=== PATIENT | male | born 1990 | race Caucasian/White ===

== ENCOUNTER 2017-11-09 11:14 | Emergency (ER) | payer BC ==
[~2017-11-09] VITALS: Ht 170.2 cm; Wt 66.5 kg
[~2017-11-09 11:14] MED LIST: FLUV25TA2 PO; LORA-741 PO
[2017-11-09 11:38] VITALS: TEMP 37; Ht 170.2 cm; Wt 66.5 kg
[2017-11-09] MEDS ORDERED: FAMOTIDINE 20MG/5ML IV PUSH IV STA (13:07)
--- NOTE | 2017-11-09 13:15 | EMERGENCY ROOM VISIT NOTE ---
History Report prepared by Coryibnaye: Charissa Salcedo Under the Supervision of: Dr. Usha Thornton M.D. First contact with patient: 13:04 Chief Complaint: SHORTNESS OF BREATH Stated Complaint: FLU LIKE, SOB, UPPER STOMACH PAIN Nursing Triage Summary: flulike symoptoms since last thursday. fevers, chills and hot flashes, bodyaches, vomiting x1, diarrhea for several days. pt reports pain when lying down which at times has SOB History of Present Illness The patient is a 26 year old male who presents to the Emergency Room with complaints of intermittent severe upper abdominal pain beginning about 5 days ago. The patient states his pain worsens when he lays flat. The patient states he was having flu like symptoms over the past couple days. He states he went to his PCP on Thursday, three days ago, to be tested for the flu which he was negative for. He reports a 100.6 degree fever and some shortness of breath. He describes his pain as "squeezing my insides". The patient reports taking Tums and a gas relief medication with minimal relief. He denies any alcohol or tobacco use. He states he occasionally drinks coffee but denies drinking any soda. The patient takes gabapentin and an antiinflammatory for a budging disc in his back. Source of History: patient Onset: 5 days ago Position: abdomen Symptom Intensity: severe Timing: intermittent Modifying Factors (Worsening): other (lays flat) Associated Symptoms: + fevers, + SOB, + abdominal pain Review of Systems See HPI for pertinent positives & negatives. A total of 10 systems reviewed and were otherwise negative. Past Medical & Surgical Medical Problems: (1) Asthma Surgical Problems: (1) H/O tympanostomy Family History FH: Crohn's disease FH: kidney disease Social History Smoking Status: Never Smoker Alcohol Use: occasionally Marital Status: Housing Status: lives with significant other Occupation Status: employed Current/Historical Medications Scheduled Fluvoxamine Maleate (Luvox), 50 MG PO DAILY Gabapentin (Gabapentin), 300 MG PO BID Meloxicam (Meloxicam), 15 MG PO DAILY Omeprazole (Prilosec), 20 MG PO DAILY Allergies Coded Allergies: Morphine (Unverified Adverse Reaction, Severe, NAUSEA, 11/09/17) Physical Exam Vital Signs Date Time Temp Pulse Resp B/P (MAP) Pulse Ox O2 Delivery O2 Flow Rate FiO2 11/09/17 16:07 87 16 116/66 99 Room Air 11/09/17 14:39 87 16 111/74 100 Room Air 11/09/17 13:25 56 11/09/17 13:21 99 Room Air 11/09/17 13:21 80 16 121/72 99 Room Air 11/09/17 11:40 100 Room Air 11/09/17 11:38 37.0 95 18 122/55 99 Room Air Physical Exam Vital signs reviewed. General: Well-appearing male, in no significant distress. HEENT: No scleral icterus, PERRLA, neck supple. Atraumatic. Cardiovascular: Regular rate and rhythm, no extra sounds. Pulmonary: Clear to auscultation bilaterally, normal work of breathing. Abdomen: Soft, nontender, nondistended, positive bowel sounds. Musculoskeletal: Atraumatic, no peripheral edema. Neurologic: Patient awake alert and oriented x 3 Skin: Warm, dry, no rash Medical Decision & Procedures ER Provider Diagnostic Interpretation: Radiology results as stated below per my review and radiologist interpretation: TWO VIEW CHEST FINDINGS: PA and lateral chest radiographs are obtained. No prior studies are available for comparison at the time of dictation. The cardiomediastinal silhouette is unremarkable. The lungs and pleural spaces are clear. There is no pneumothorax. The bony thorax appears intact. IMPRESSION: No active disease in the chest. Electronically signed by: Blake Kruger M.D. Laboratory Results 11/09/17 13:20 Red Blood Count 4.83, Mean Corpuscular Volume 94.0, Mean Corpuscular Hemoglobin 33.1, Mean Corpuscular Hemoglobin Concent 35.2, Mean Platelet Volume 11.1, Neutrophils (%) (Auto) 60.7, Lymphocytes (%) (Auto) 28.5, Monocytes (%) (Auto) 8.6, Eosinophils (%) (Auto) 1.6, Basophils (%) (Auto) 0.4, Neutrophils # (Auto) 2.98, Lymphocytes # (Auto) 1.40, Monocytes # (Auto) 0.42, Eosinophils # (Auto) 0.08, Basophils # (Auto) 0.02 11/09/17 13:20 Test 11/09/17 13:20 11/09/17 13:25 White Blood Count 4.91 K/uL (4.8-10.8) Red Blood Count 4.83 M/uL (4.7-6.1) Hemoglobin 16.0 g/dL (14.0-18.0) Hematocrit 45.4 % (42-52) Mean Corpuscular Volume 94.0 fL (80-100) Mean Corpuscular Hemoglobin 33.1 pg (25-34) Mean Corpuscular Hemoglobin Concent 35.2 g/dl (32-36) Platelet Count 171 K/uL (130-400) Mean Platelet Volume 11.1 fL (7.4-10.4) Neutrophils (%) (Auto) 60.7 % Lymphocytes (%) (Auto) 28.5 % Monocytes (%) (Auto) 8.6 % Eosinophils (%) (Auto) 1.6 % Basophils (%) (Auto) 0.4 % Neutrophils # (Auto) 2.98 K/uL (1.4-6.5) Lymphocytes # (Auto) 1.40 K/uL (1.2-3.4) Monocytes # (Auto) 0.42 K/uL (0.11-0.59) Eosinophils # (Auto) 0.08 K/uL (0-0.5) Basophils # (Auto) 0.02 K/uL (0-0.2) RDW Standard Deviation 43.1 fL (36.4-46.3) RDW Coefficient of Variation 12.6 % (11.5-14.5) Immature Granulocyte % (Auto) 0.2 % Immature Granulocyte # (Auto) 0.01 K/uL (0.00-0.02) Anion Gap 5.0 mmol/L (3-11) Est Creatinine Clear Calc Drug Dose 91.0 ml/min Estimated GFR () 100.9 Estimated GFR (Non- 87.0 BUN/Creatinine Ratio 11.6 (10-20) Calcium Level 9.0 mg/dl (8.5-10.1) Total Bilirubin 1.4 mg/dl (0.2-1) Direct Bilirubin 0.3 mg/dl (0-0.2) Aspartate Amino Transf (AST/SGOT) 13 U/L (15-37) Alanine Aminotransferase (ALT/SGPT) 19 U/L (12-78) Alkaline Phosphatase 50 U/L (45-117) Troponin I < 0.015 ng/ml (0-0.045) Total Protein 7.0 gm/dl (6.4-8.2) Albumin 4.3 gm/dl (3.4-5.0) Lipase 147 U/L (73-393) Bedside D-Dimer > 450 ng/mlFEU (0-450) Bedside Troponin I ng/ml (0-0.045) Laboratory results per my review. Medications Administered Medications (Trade) Dose Ordered Sig/Kristine Route Start Time Stop Time Status Last Admin Dose Admin Famotidine (Pepcid 20mg Iv Push) 20 mg ONE STAT IV 11/09/17 13:07 11/09/17 13:11 DC 11/09/17 14:40 20 MG Acetaminophen (Tylenol Tab) 650 mg NOW STAT PO 11/09/17 15:28 11/09/17 15:29 DC 11/09/17 16:04 650 MG ED Course 1306: Past medical records reviewed. The patient was evaluated in room C6. A complete history and physical examination was performed. 1307: Ordered Famotidine 20 mg IV. 1513: I updated the patient on his test results. Medical Decision Differential diagnosis: Etiologies such as appendicitis, diverticulitis, PUD, biliary pathology, UTI, pancreatitis, obstruction, mesenteric ischemia, aortic pathology, infections, inflammatory bowel disease, renal colic, as well as others were entertained. This patient was evaluated and appeared to be in no significant distress. IV access was obtained and laboratory work was drawn. Chest x-ray was obtained and is negative. Laboratory work reveals a normal white blood cell count, normal troponin and elevated d-dimer. CT scan of the chest was performed and is negative for PE. I do suspect that the patient may be suffering more from a gastritis/PUD or esophageal reflux. Patient was given Pepcid 20 mg IV. Patient was given oral Tylenol for his discomfort. He was given a prescription for Prilosec 20 mg daily and advised to follow-up with his PCP. Patient was given restrictions on NSAIDs and dietary. He will return to the ER for worsening of symptoms or any medical concerns. Medication Reconcilliation Current Medication List: was personally reviewed by me Blood Pressure Screening Patient's blood pressure: Normal blood pressure Impression Primary Impression: Epigastric pain Scribe Attestation The scribe's documentation has been prepared under my direction and personally reviewed by me in its entirety. I confirm that the note above accurately reflects all work, treatment, procedures, and medical decision making performed by me. Departure Information Dispostion Home / Self-Care Prescriptions Omeprazole (PRILOSEC) 20 Mg Capcr 20 MG PO DAILY for 30 Days, #30 CAP Prov: Usha Thornton M.D. 11/09/17 Referrals Star Jones M.D. (PCP) Forms HOME CARE DOCUMENTATION FORM, IMPORTANT VISIT INFORMATION Patient Instructions My [facility] Additional Instructions Diagnosis: Epigastric pain Prilosec 20 mg daily Avoid NSAIDs such as ibuprofen, Naprosyn. Avoid aspirin. Drink plenty of clear fluids. Avoid any greasy or spicy foods. Follow-up with your physician this week for reevaluation. Return to the ER for worsening of symptoms or any medical concerns.
[2017-11-09 13:21] VITALS: O2SAT 99
[2017-11-09] MEDS ORDERED: MELO15TA4 PO (13:35)
[2017-11-09] MEDS ORDERED: NRN300 PO (13:35)
[2017-11-09 14:05] LABS: BASO % 0.4 %; BASO ABS # 0.02 K/uL (0-0.2); EOS % 1.6 %; EOS ABS # 0.08 K/uL (0-0.5); HEMATOCRIT 45.4 % (42-52); IG# 0.01 K/uL (0.00-0.02); LYMPH % 28.5 %; MEAN CORPUSCULAR HEMOGLOBIN 33.1 pg (25-34); MEAN CORPUSCULAR HGB CONC 35.2 g/dl (32-36); MEAN PLATELET VOLUME 11.1 fL (7.4-10.4); MONO % 8.6 %; MONO ABS # 0.42 K/uL (0.11-0.59); NEUT % 60.7 %; NEUT ABS # 2.98 K/uL (1.4-6.5); PLATELET COUNT 171 K/uL (130-400); RED CELL DISTRIBUTION WIDTH CV 12.6 % (11.5-14.5); RED CELL DISTRIBUTION WIDTH SD 43.1 fL (36.4-46.3); WHITE BLOOD COUNT 4.91 K/uL (4.8-10.8)
[2017-11-09 14:33] LABS: ALBUMIN 4.3 gm/dl (3.4-5.0); CREATININE 1.16 mg/dl (0.60-1.40); POTASSIUM 4.3 mmol/L (3.5-5.1)
--- NOTE | 2017-11-09 15:03 | DIAGNOSTIC IMAGING REPORT ---
TWO VIEW CHEST CLINICAL HISTORY: Dyspnea and fever. Epigastric abdominal pain. FINDINGS: PA and lateral chest radiographs are obtained. No prior studies are available for comparison at the time of dictation. The cardiomediastinal silhouette is unremarkable. The lungs and pleural spaces are clear. There is no pneumothorax. The bony thorax appears intact. IMPRESSION: No active disease in the chest. Electronically signed by: Blake Kruger M.D. 11/09/2017 3:02 PM Dictated Date/Time: 11/09/2017 3:01 PM
[2017-11-09] MEDS ORDERED: PRLSR20 PO (15:22)
[2017-11-09] MEDS ORDERED: ACETAMINOPHEN 325 MG TAB PO STA (15:28)
[2017-11-09] MEDS ORDERED: OPTIRAY 320 IV PRN (15:30)
--- NOTE | 2017-11-09 15:58 | DIAGNOSTIC IMAGING REPORT ---
(CHEST FOR PE) ANGIO WITH CLINICAL HISTORY: 26 years-old Male presenting with ^elevated ddimer, SOB. TECHNIQUE: Multidetector CT angiography of the chest was performed after administration of intravenous contrast. 3-D volumetric and/or maximum intensity projection (MIP) images were subsequently reconstructed for review. IV contrast: 91 mL of Optiray 320. A dose lowering technique was used consistent with the principles of ALARA (as low as reasonably achievable). COMPARISON: None. CT DOSE (mGy.cm): The estimated cumulative dose is 256.01 mGy.cm. FINDINGS: Armature W[employer] Helper topogram: Unremarkable. Pulmonary vasculature: The study is adequate for assessment of the pulmonary vascular tree. No filling defect within the pulmonary arteries to suggest embolus. Main pulmonary artery is not enlarged. No flattening of the interventricular septum. No intracardiac filling defect. Reflux of contrast into the intrahepatic IVC. Remaining chest: On soft tissue windows, normal thyroid and thoracic inlet. No axillary, supraclavicular, hilar, or mediastinal lymphadenopathy. Normal aorta. Normal heart size. No pericardial or pleural effusion. Upper abdomen normal. On lung windows, no focal infiltrate or nodule. Airways patent. On bone windows, normal osseous structures. IMPRESSION: 1. No evidence of pulmonary embolus. No acute intrathoracic pathology. Electronically signed by: Malcolm Hidalgo M.D. 11/09/2017 3:56 PM Dictated Date/Time: 11/09/2017 3:52 PM
[2017-11-09 16:07] VITALS: BP 116/66; PULSE 87; O2SAT 99
== END 2017-11-09 16:11 | disposition home or self-care (01) ==
LOC: C.EDB 11:16 → C.EDC 16:11
DX: R10.13 Epigastric pain (principal); R06.02 Shortness of breath; R50.9 Fever, unspecified; J45.909 Unspecified asthma, uncomplicated; Z98.890 Other specified postprocedural states